=== PATIENT | male | born 1985 | race Caucasian/White ===

== ENCOUNTER → 2024-02-08 | Outpatient (REF) | payer OTHER | LOC: M LABSMT 09:49 | PROVIDERS: ATTEND Urology | DX: Z30.2 Encounter for sterilization (principal) ==

== ENCOUNTER 2025-08-13 12:35 | Emergency (ER) | payer OTHER, BC ==
[~2025-08-13] VITALS: Ht 188 cm; Wt 172.7 kg
[2025-08-13] MEDS ORDERED: FAMO40TA3 (13:02)
[2025-08-13] MEDS ORDERED: CARV6.25 (13:02)
[2025-08-13] MEDS ORDERED: ESCITALOPRAM (13:02)
[2025-08-13] MEDS ORDERED: LOSA100T8 (13:02)
[2025-08-13] MEDS ORDERED: CLON-412 (13:02)
[2025-08-13] MEDS ORDERED: AMLO1TAB25 (13:02)
[2025-08-13] MEDS ORDERED: FURO20TA2 (13:02)
[2025-08-13 16:12] VITALS: BP 166/89; TEMP 97.1; O2SAT 99
== END 2025-08-13 16:30 | disposition home or self-care (01) ==
LOC: M ED 12:35
DX: S13.4XXA Sprain of ligaments of cervical spine, initial encounter (principal); S63.502A Unspecified sprain of left wrist, initial encounter; Y92.9 Unspecified place or not applicable; Y93.9 Activity, unspecified; Y99.9 Unspecified external cause status; V49.40XA Driver injured in collision with unspecified motor vehicles in traffic accident, initial encounter; I10 Essential (primary) hypertension; K21.9 Gastro-esophageal reflux disease without esophagitis; F41.9 Anxiety disorder, unspecified; Z79.899 Other long term (current) drug therapy